=== PATIENT | female | born 1990 | race Two or more races ===

== ENCOUNTER 2022-01-18 23:26 | Inpatient (IN) | payer OTHER ==
[~2022-01-18] VITALS: Ht 152.4 cm; Wt 72.1 kg
[2022-01-18] MEDS ORDERED: PRENATAL TABLE1 EAC1 PO (23:38)
== END 2022-01-20 09:40 | disposition home or self-care (01) | DRG 833 ==
LOC: LDR 23:26 → OB/GYN 23:26
PROVIDERS: ADMIT Obstetrics & Gynecology Maternal & Fetal Medicine; ATTEND Obstetrics & Gynecology Maternal & Fetal Medicine
PROC: 4A1HXCZ Monitoring of Products of Conception, Cardiac Rate, External Approach (ICD-10-PCS; principal; 2022-01-18)
DX: O46.8X3 Other antepartum hemorrhage, third trimester (principal); Z3A.35 35 weeks gestation of pregnancy; Z20.822 Contact with and (suspected) exposure to COVID-19

== ENCOUNTER 2022-02-13 10:45 | Inpatient (IN) | payer OTHER ==
[~2022-02-13] VITALS: Ht 152.4 cm; Wt 74.8 kg
[~2022-02-13 10:45] MED LIST: PRENATAL TABLE1 EAC1 PO
== END 2022-02-21 13:21 | disposition home or self-care (01) | DRG 788 ==
LOC: O/R 02-19 08:30 → LDR 02-19 08:45 → OB/GYN 02-19 20:52 → O/R 02-19 20:55 → OB/GYN 02-19 21:16
PROVIDERS: ADMIT Obstetrics & Gynecology Maternal & Fetal Medicine; ATTEND Obstetrics & Gynecology Maternal & Fetal Medicine
PROC: 4A1HXCZ Monitoring of Products of Conception, Cardiac Rate, External Approach (ICD-10-PCS; 2022-02-19)
PROC: 10D00Z1 Extraction of Products of Conception, Low, Open Approach (ICD-10-PCS; principal; 2022-02-19 08:45)
DX: O34.211 Maternal care for low transverse scar from previous cesarean delivery (principal); Z3A.39 39 weeks gestation of pregnancy; Z37.0 Single live birth; Z20.822 Contact with and (suspected) exposure to COVID-19